=== PATIENT | female | born 1960 | race Two or more races ===

== ENCOUNTER 2023-01-10 12:40 | Outpatient (CLI) | payer OTHER | END 2023-01-10 12:52 | disposition home or self-care (01) | LOC: NUCLEAR 12:40 | PROVIDERS: ATTEND Internal Medicine Sports Medicine | DX: C73 Malignant neoplasm of thyroid gland (principal); E89.0 Postprocedural hypothyroidism ==

== ENCOUNTER 2023-01-14 11:23 | Outpatient (CLI) | payer OTHER | END 2023-01-14 11:26 | disposition home or self-care (01) | LOC: NUCLEAR 11:23 | PROVIDERS: ATTEND Internal Medicine Sports Medicine | DX: C73 Malignant neoplasm of thyroid gland (principal); E89.0 Postprocedural hypothyroidism ==